=== PATIENT | male | born 1985 | race Caucasian/White ===

== ENCOUNTER 2017-10-19 13:07 | Emergency (ER) | payer BC ==
[~2017-10-19] VITALS: Ht 176.5 cm; Wt 75.1 kg
[2017-10-19 13:09] VITALS: TEMP 36.6; Ht 176.5 cm; Wt 75.1 kg
[2017-10-19] MEDS ORDERED: SODIUM CHLORIDE 0.9% 1000ML 2,000 ML IV STA (13:40)
[2017-10-19] MEDS ORDERED: ONDANSETRON 8 MG/54 ML D5W IV STA (13:40)
[2017-10-19] MEDS ORDERED: LORAZEPAM 0.5 MG TAB SL STA (13:40)
[2017-10-19 13:41] LABS: BASO % 0.3 %; BASO ABS # 0.02 K/uL (0-0.2); EOS % 2.6 %; EOS ABS # 0.18 K/uL (0-0.5); HEMATOCRIT 47.5 % (42-52); HEMOGLOBIN 17.4 g/dL (14.0-18.0); IG# 0.01 K/uL (0.00-0.02); LYMPH % 26.1 %; LYMPH ABS # 1.79 K/uL (1.2-3.4); MEAN CELL VOLUME 88.3 fL (80-100); MEAN CORPUSCULAR HEMOGLOBIN 32.3 pg (25-34); MEAN CORPUSCULAR HGB CONC 36.6 g/dl (32-36); MEAN PLATELET VOLUME 8.8 fL (7.4-10.4); MONO % 8.7 %; NEUT % 62.2 %; NEUT ABS # 4.27 K/uL (1.4-6.5); PLATELET COUNT 210 K/uL (130-400); RED CELL DISTRIBUTION WIDTH CV 11.9 % (11.5-14.5); RED CELL DISTRIBUTION WIDTH SD 37.8 fL (36.4-46.3); WHITE BLOOD COUNT 6.87 K/uL (4.8-10.8)
[2017-10-19 13:59] LABS: ALBUMIN 4.4 gm/dl (3.4-5.0); CALCIUM 9.3 mg/dl (8.5-10.1); CREATININE 1.05 mg/dl (0.60-1.40); POTASSIUM 3.4 mmol/L (3.5-5.1)
[2017-10-19] MEDS ORDERED: OPTIRAY 320 IV PRN (14:00)
[2017-10-19 14:02] LABS: TOTAL PROTEIN 7.7 gm/dl (6.4-8.2)
--- NOTE | 2017-10-19 16:40 | DIAGNOSTIC IMAGING REPORT ---
ABDOMEN AND PELVIS CT WITH IV AND ORAL CONTRAST CT DOSE: 421.85 mGycm HISTORY: Right lower quadrant abdominal pain. TECHNIQUE: Multiaxial CT images of the abdomen and pelvis were performed following the use of intravenous and oral contrast. A dose lowering technique was utilized adhering to the principles of ALARA. COMPARISON STUDY: None. FINDINGS: The lung bases are clear. No pneumoperitoneum. No pneumatosis. No fractures within the visualized osseous structures. The liver, gallbladder, pancreas, spleen, adrenal glands, and kidneys are unremarkable. Questionable mild bladder wall thickening. This is likely due to underdistention. No retroperitoneal lymphadenopathy. No pelvic free fluid. No bowel wall thickening or obstruction. Normal appendix. IMPRESSION: 1. No bowel wall thickening or obstruction. 2. Normal appendix. Electronically signed by: John Ruiz M.D. 10/19/2017 4:39 PM Dictated Date/Time: 10/19/2017 4:26 PM
[2017-10-19] MEDS ORDERED: FAMO20TA11 PO (16:54)
[2017-10-19] MEDS ORDERED: ONDA4TAB46 PO (16:54)
[2017-10-19 17:15] VITALS: BP 147/91; PULSE 72; O2SAT 96
--- NOTE | 2017-10-19 19:21 | EMERGENCY ROOM VISIT NOTE ---
History Report prepared by Flavio: Dora Rodgers Under the Supervision of: Lorrie HuffmanO. First contact with patient: 13:13 Chief Complaint: NAUSEA Stated Complaint: NAUSEA, VOMITING, DEHYDRATION, SUBTLE PAIN History of Present Illness The patient is a 32 year old male who presents to the Emergency Room with complaints of intermittent nausea for the past 4 days. Initially he woke up with nausea 4 days ago and thought that he had a stomach flu. He was vomiting at that time and had some relief of his nausea after an episode of vomiting. This persisted throughout the day. The next morning he woke up and was feeling better. He was able to go to work and eat. The following day, 2 days ago, he woke up again with nausea. He was unable to vomit and reports that he tried to self-induce vomiting but was only able to dry heave. The patient has had waxing and waning right-sided abdominal pain over the past 4 days. He reports that he is also currently feeling "super anxious and weak." He notes a slight headache. He has been able to drink water today but has had very little to eat over the past 3 days. He has not eaten anything today. Yesterday he tried to eat and that made his symptoms significantly worse. Pt denies change in vision, fevers, rhinorrhea, cough, sore throat, chest pain, shortness of breath, diarrhea, pain with urination, and melena. Pt states that he drinks alcohol heavily on weekends. Source of History: patient Onset: 4 days ago Position: abdomen Quality: other (nausea) Timing: intermittent Modifying Factors (Worsening): eating Modifying Factors (Relieving): other (vomiting) Associated Symptoms: + headache, + vomiting, + weakness, No sorethroat, No cough, No chest pain, No SOB, No melena, No diarrhea, No urinary symptoms Note: Pt reports feeling anxious. Review of Systems See HPI for pertinent positives & negatives. A total of 10 systems reviewed and were otherwise negative. Past Medical & Surgical Medical Problems: (1) Anxiety Family History No pertinent history stated. Social History Smoking Status: Former Smoker Alcohol Use: occasionally Occupation Status: employed Current/Historical Medications Scheduled Famotidine (Pepcid), 20 MG PO DAILY Scheduled PRN Ondansetron Hcl (Zofran), 4 MG PO TID PRN for Nausea Allergies Coded Allergies: No Known Allergies (Unverified , 10/19/17) Physical Exam Vital Signs Date Time Temp Pulse Resp B/P (MAP) Pulse Ox O2 Delivery O2 Flow Rate FiO2 10/19/17 17:15 72 147/91 96 10/19/17 16:07 74 135/92 96 10/19/17 13:09 36.6 74 18 150/110 98 Room Air Physical Exam GENERAL: Sitting up in bed, alert, well appearing, well nourished, no distress, non-toxic EYE EXAM: normal conjunctiva. OROPHARYNX: no exudate, no erythema, lips, buccal mucosa, and tongue normal and mucous membranes are moist NECK: supple, no nuchal rigidity, no adenopathy, non-tender LUNGS: Clear to auscultation. Normal chest wall mechanics HEART: no murmurs, S1 normal and S2 normal ABDOMEN: abdomen soft, faint tenderness in RLQ, normo-active bowel sounds, no masses, no rebound or guarding. BACK: Back is symmetrical on inspection and there is no deformity, no midline tenderness, no CVA tenderness. SKIN: no rashes and no bruising UPPER EXTREMITIES: upper extremities are grossly normal. LOWER EXTREMITIES: No pitting edema. NEURO EXAM: Normal sensorium, cranial nerves II-XII grossly intact, normal speech, no gross weakness of arms, no gross weakness of legs. Medical Decision & Procedures ER Provider Diagnostic Interpretation: Radiology results as stated below per my review and the radiologist's interpretation: ABDOMEN AND PELVIS CT WITH IV AND ORAL CONTRAST CT DOSE: 421.85 mGycm HISTORY: Right lower quadrant abdominal pain. TECHNIQUE: Multiaxial CT images of the abdomen and pelvis were performed following the use of intravenous and oral contrast. A dose lowering technique was utilized adhering to the principles of ALARA. COMPARISON STUDY: None. FINDINGS: The lung bases are clear. No pneumoperitoneum. No pneumatosis. No fractures within the visualized osseous structures. The liver, gallbladder, pancreas, spleen, adrenal glands, and kidneys are unremarkable. Questionable mild bladder wall thickening. This is likely due to underdistention. No retroperitoneal lymphadenopathy. No pelvic free fluid. No bowel wall thickening or obstruction. Normal appendix. IMPRESSION: 1. No bowel wall thickening or obstruction. 2. Normal appendix. Electronically signed by: John Ruiz M.D. 10/19/2017 4:39 PM Dictated Date/Time: 10/19/2017 4:26 PM Laboratory Results 10/19/17 13:27 Red Blood Count 5.38, Mean Corpuscular Volume 88.3, Mean Corpuscular Hemoglobin 32.3, Mean Corpuscular Hemoglobin Concent 36.6, Mean Platelet Volume 8.8, Neutrophils (%) (Auto) 62.2, Lymphocytes (%) (Auto) 26.1, Monocytes (%) (Auto) 8.7, Eosinophils (%) (Auto) 2.6, Basophils (%) (Auto) 0.3, Neutrophils # (Auto) 4.27, Lymphocytes # (Auto) 1.79, Monocytes # (Auto) 0.60, Eosinophils # (Auto) 0.18, Basophils # (Auto) 0.02 10/19/17 13:27 Test 10/19/17 13:23 10/19/17 13:27 Urine Color DK YELLOW Urine Appearance CLOUDY (CLEAR) Urine pH 7.5 (4.5-7.5) Urine Specific Hume 1.025 (1.000-1.030) Urine Protein NEG (NEG) Urine Glucose (UA) NEG (NEG) Urine Ketones 1+ (NEG) Urine Occult Blood NEG (NEG) Urine Nitrite NEG (NEG) Urine Bilirubin NEG (NEG) Urine Urobilinogen NEG (NEG) Urine Leukocyte Esterase NEG (NEG) Urine WBC (Auto) 1-5 /hpf (0-5) Urine RBC (Auto) 0-4 /hpf (0-4) Urine Hyaline Casts (Auto) 1-5 /lpf (0-5) Urine Epithelial Cells (Auto) 10-20 /lpf (0-5) Urine Bacteria (Auto) NEG (NEG) White Blood Count 6.87 K/uL (4.8-10.8) Red Blood Count 5.38 M/uL (4.7-6.1) Hemoglobin 17.4 g/dL (14.0-18.0) Hematocrit 47.5 % (42-52) Mean Corpuscular Volume 88.3 fL (80-100) Mean Corpuscular Hemoglobin 32.3 pg (25-34) Mean Corpuscular Hemoglobin Concent 36.6 g/dl (32-36) Platelet Count 210 K/uL (130-400) Mean Platelet Volume 8.8 fL (7.4-10.4) Neutrophils (%) (Auto) 62.2 % Lymphocytes (%) (Auto) 26.1 % Monocytes (%) (Auto) 8.7 % Eosinophils (%) (Auto) 2.6 % Basophils (%) (Auto) 0.3 % Neutrophils # (Auto) 4.27 K/uL (1.4-6.5) Lymphocytes # (Auto) 1.79 K/uL (1.2-3.4) Monocytes # (Auto) 0.60 K/uL (0.11-0.59) Eosinophils # (Auto) 0.18 K/uL (0-0.5) Basophils # (Auto) 0.02 K/uL (0-0.2) RDW Standard Deviation 37.8 fL (36.4-46.3) RDW Coefficient of Variation 11.9 % (11.5-14.5) Immature Granulocyte % (Auto) 0.1 % Immature Granulocyte # (Auto) 0.01 K/uL (0.00-0.02) Anion Gap 6.0 mmol/L (3-11) Est Creatinine Clear Calc Drug Dose 102.6 ml/min Estimated GFR () 108.3 Estimated GFR (Non- 93.5 BUN/Creatinine Ratio 13.5 (10-20) Calcium Level 9.3 mg/dl (8.5-10.1) Total Bilirubin 1.6 mg/dl (0.2-1) Direct Bilirubin 0.4 mg/dl (0-0.2) Aspartate Amino Transf (AST/SGOT) 25 U/L (15-37) Alanine Aminotransferase (ALT/SGPT) 35 U/L (12-78) Alkaline Phosphatase 76 U/L (45-117) Total Protein 7.7 gm/dl (6.4-8.2) Albumin 4.4 gm/dl (3.4-5.0) Lipase 57 U/L (73-393) Laboratory results per my review. Medications Administered Medications (Trade) Dose Ordered Sig/Meg Route Start Time Stop Time Status Last Admin Dose Admin Sodium Chloride 2,000 ml @ 999 mls/hr Q2H1M STAT IV 10/19/17 13:40 10/19/17 15:40 DC 10/19/17 13:53 999 MLS/HR Ondansetron HCl (Zofran 8mg Iv) 8 mg NOW STAT IV 10/19/17 13:40 10/19/17 13:41 DC 10/19/17 14:11 8 MG Lorazepam (Ativan Tab) 0.5 mg NOW STAT SL 10/19/17 13:40 10/19/17 13:41 DC 10/19/17 13:53 0.5 MG ED Course ED COURSE: Vital signs were reviewed and showed hypertensive. The patients medical record was reviewed The above diagnostic studies were performed and reviewed. ED treatments and interventions as stated above. 1313: The patient was evaluated in room B8. A complete history and physical examination was performed. 1340: Ativan 0.5 mg SL, Zofran 8 mg IV, NSS 2000 ml @ 999 mls/hr IV 1528: The patient is doing well and almost ready for CT. 1652: Upon reevaluation, the patient is feeling better and resting comfortably. I discussed my findings with the patient and he understands and agrees with the treatment plan. Based on the patients age, coexisting illnesses, exam and lab findings the decision to treat as an outpatient was made. The patient remained stable while under my care. The patient appeared well at the time of discharge. Medical Decision Differential diagnoses includes but is not limited to gastritis, peptic ulcer disease, GERD, gallbladder disease, pancreatitis, small bowel obstruction, acute coronary syndrome, pericarditis, ischemic bowel, irritable bowel disease, irritable bowel syndrome, appendicitis, diverticulitis, malignancy, hernia, urinary tract infection, torsion, perforation, trauma, infectious. Patient is a 32-year-old male who presents to ER for right lower quadrant abdominal pain associated with nausea and intermittent vomiting. His abdominal exam is complete benign. CBC was unremarkable. BMP with mild hypokalemia. T bili and D bili were elevated slightly at 0.1 higher than baseline. LFTs along with lipase was normal. UA was negative. CT abdomen pelvis was completely benign for any acute pathology including appendicitis or cholecystitis. Patient had no pain in the right upper quadrant. His abdominal exam again as stated before was benign. He was given fluids and Zofran. Is updated and discharge follow-up PCP as an outpatient. He does drink a fair amount of alcohol weekends and consequently I do question if this is secondary to gastritis and recommended Pepcid. Discussed with Pt concerning signs and symptoms to watch out for. Pt was instructed to follow up with their PCP and discussed with the patient their option to return to the ED at anytime for persistent or worsening symptoms. The appropriate anticipatory guidance and out- patient management, including indications for return to the emergency department , were explained at length to the patient and understood. Medication Reconcilliation Current Medication List: was personally reviewed by me Blood Pressure Screening Patient's blood pressure: Elevated blood pressure Blood pressure disposition: Elevated BP felt to be situational Impression Primary Impression: Nausea & vomiting Additional Impression: Hypokalemia Scribe Attestation The scribe's documentation has been prepared under my direction and personally reviewed by me in its entirety. I confirm that the note above accurately reflects all work, treatment, procedures, and medical decision making performed by me. Departure Information Dispostion Home / Self-Care Prescriptions Famotidine (Pepcid) 20 Mg Tab 20 MG PO DAILY for 30 Days, #30 TAB Prov: Javier Castillo, DO 10/19/17 Ondansetron Hcl (ZOFRAN) 4 Mg Tab 4 MG PO TID Y for Nausea, #30 TAB Prov: Javier Castillo, DO 10/19/17 Referrals No Doctor, Assigned (PCP) Aracelis Temple PA-C Forms HOME CARE DOCUMENTATION FORM, IMPORTANT VISIT INFORMATION Patient Instructions ED Nausea Vomiting, My [facility] Additional Instructions Please follow up with your primary care doctor with in the next 24 hours. Any worsening of your symptoms, please return to the ED immediately. This includes any fevers greater than 100.4, worsening pain, chest pain, shortness breath, persistent nausea, vomiting, unable to eat or drink, or any other concerning signs or symptoms from your standpoint. Please take Zofran as needed for nausea vomiting. Please take Pepcid as prescribed Problem Qualifiers Primary Impression: Nausea & vomiting Vomiting type: unspecified Vomiting Intractability: unspecified Qualified Codes: R11.2 - Nausea with vomiting, unspecified
== END 2017-10-19 17:15 | disposition home or self-care (01) ==
LOC: C.EDB 13:09
DX: Z11.2 Encounter for screening for other bacterial diseases (principal); E87.6 Hypokalemia; Z87.891 Personal history of nicotine dependence